=== PATIENT | male | born 1955 | race Caucasian/White ===

== ENCOUNTER 2023-10-10 10:44 | Outpatient (AMB) | payer MEDICARE, SELFPAY ==
--- NOTE | 2023-10-10 10:59 | HO.NEPHOV ---
HPI HPI Comments History of Present Illness Details I had the privilege of seeing Tee in follow-up of his CKD, proteinuria and hypertension. He has had renal cell cancer and underwent partial left nephrectomy. His blood sugar is reasonably controlled. His hypoglycemic medicatiobs have been adjusted by his media promoter. He is on Jardiance. He denies any orthostatic symptoms, nausea, vomiting, diarrhea, chest pain, shortness of breath or pedal edema. He has history of basal cell cancer on the skin and had it removed. All the systems were reviewed and were negative. [facility] Medical History (Updated 10/10/23 @ 13:53 by Hector Perdue MD) Proteinuria Renal cell cancer Hypertension Type 2 diabetes mellitus with diabetic nephropathy Surgical History (Updated 10/10/23 @ 09:45 by Tali Coburn MA) History of nephrectomy, left Family History (Updated 10/10/23 @ 11:10 by Tali Coburn MA) Father Stroke Mother Heart disease Social History (Updated 10/10/23 @ 11:11 by Tali Coburn MA) Alcohol intake: current Comment: On Occasion Patient Tobacco Use Status: Never used Tobacco Vital Signs 10/10/23 11:02 Height 5 ft 6 in Weight 187 lb 4 oz BMI 30.2 BP 144/94 H Blood Pressure Location Lt brachial Position Sitting Pulse 101 H Pulse Source Pulse Oximeter Pulse Oximetry (%) 95 Oxygen Delivery Method Room Air Physical Exam Vital Signs: Last Vital Signs Pulse 101 H 10/10/23 11:02 BP 144/94 H 10/10/23 11:02 Pulse Ox 95 10/10/23 11:02 Oxygen Delivery Method Room Air 10/10/23 11:02 BMI result Body Mass Index 30.2 Const General: comfortable and no acute distress Orientation/consciousness: patient oriented x3 HEENT Head: Yes normocephalic Mouth: Normal oral and palatal mucosa present Eyes EOM: EOMs intact bilaterally Neck Neck: Yes supple Resp Auscultation: clear to auscultation bilaterally Cardio Jugular venous distension: no JVD Rate: regular rate GI Palpation (GI): Soft to palpation Auscultation: normal bowel sounds General: Yes no CVA tenderness Back/Spine/Pelvis Back: no CVA tenderness Skin General skin exam: no rashes or lesions noted Neuro General: patient oriented x3 and moves all extremities Extrem General: Yes no pedal edema Assessment & Plan Assessment & Plan (1) Diabetic nephropathy: Code(s): E11.21 - Type 2 diabetes mellitus with diabetic nephropathy Qualifiers: Diabetes mellitus type: type 2 Qualified Code(s): E11.21 - Type 2 diabetes mellitus with diabetic nephropathy (2) Hypertension: Code(s): I10 - Essential (primary) hypertension Qualifiers: Hypertension type: primary hypertension Qualified Code(s): I10 - Essential (primary) hypertension (3) Type 2 diabetes mellitus with diabetic nephropathy: Code(s): E11.21 - Type 2 diabetes mellitus with diabetic nephropathy Qualifiers: Diabetes mellitus halfway insulin use: with halfway use Qualified Code(s): E11.21 - Type 2 diabetes mellitus with diabetic nephropathy; Z79.4 - terminal carman (current) use of insulin Plan 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 His blood pressure is not at goal. I increased his lisinopril to 40 mg once daily. He is on Jardiance. He avoids nonsteroidal anti-inflammatory medications and maintain good hydration. His blood sugar needs to be better control. He should be on a low-sodium diet. He has history of partial nephrectomy for left renal cell cancer. He needs to follow-up with his urologist. He may benefit from a sleep study. I did not make any other medication changes today. No other prescription refills requested. Follow-up blood work ordered. Follow-up appointment given. All questions answered. Orders: Orders Electrolytes Today E11.21 - Type 2 diabetes mellitus with diabetic nephropathy, I10 - Essential (primary) hypertension Creatinine Today E11.21 - Type 2 diabetes mellitus with diabetic nephropathy, I10 - Essential (primary) hypertension Protein Creatinine Ratio, Ur Today E11.21 - Type 2 diabetes mellitus with diabetic nephropathy, I10 - Essential (primary) hypertension Blood Urea Nitrogen Today E11.21 - Type 2 diabetes mellitus with diabetic nephropathy, I10 - Essential (primary) hypertension Medications: Changed From lisinopril 30 mg PO DAILY 30 tabs 2RF To lisinopril 40 mg PO DAILY 90 tabs 2RF 90 days Coding Level of Care Code Est Pt Level 4 (81160) Diagnoses Diabetic nephropathy associated with type 2 diabetes mellitus E11.21 Diabetes mellitus type: type 2 Primary hypertension I10 Hypertension type: primary hypertension Type 2 diabetes mellitus with diabetic nephropathy, with long-term current use of insulin E11.21; Z79.4 Diabetes mellitus joint terminal attack controller insulin use: with joint terminal attack controller use Results Reviewed Nephrology Results: No Data to Display
[2023-10-10 11:02] VITALS: BP 144/94; PULSE 101; O2SAT 95; BMI 30.2
== END 2023-10-10 11:42 | disposition home or self-care (01) ==
PROVIDERS: Visit Provider Internal Medicine Nephrology
DX: E11.21 Type 2 diabetes mellitus with diabetic nephropathy (principal); I10 Essential (primary) hypertension; Z79.4 Long term (current) use of insulin
CPT/HCPCS: 99214

== ENCOUNTER → 2023-10-10 10:44 | Outpatient (BNVA) | payer MEDICARE, SELFPAY | PROVIDERS: Visit Provider Internal Medicine Nephrology | DX: I12.9 Hypertensive chronic kidney disease with stage 1 through stage 4 chronic kidney disease, or unspecified chronic kidney disease (principal); E11.21 Type 2 diabetes mellitus with diabetic nephropathy; N18.9 Chronic kidney disease, unspecified; Z79.4 Long term (current) use of insulin | CPT/HCPCS: 99212 ==

== ENCOUNTER 2024-01-23 15:47 | Outpatient (AMB) | payer MEDICARE, SELFPAY ==
--- NOTE | 2024-01-23 16:16 | HO.NEPHOV ---
Vital Signs 01/23/24 16:17 Height 5 ft 6 in Weight 179 lb 8 oz BMI 29.0 BP 130/80 Blood Pressure Location Lt brachial Position Sitting Pulse 102 H Pulse Source Pulse Oximeter Pulse Oximetry (%) 98 Oxygen Delivery Method Room Air Intake Visit Reasons: R/S 01/09/2024/ M Compounding Assistant Required: No Accompanied by: Self / Same As Patient Allergies Penicillins Allergy (Verified 01/23/24 16:19) Unknown HPI Comments Details: I had the privilege of seeing Tee in follow-up of his CKD, proteinuria and hypertension. He has had renal cell cancer and underwent partial left nephrectomy. His blood sugar is reasonably controlled. He is on Jardiance. He denies any orthostatic symptoms, nausea, vomiting, diarrhea, chest pain, shortness of breath or pedal edema. He has history of basal cell cancer on the skin and had it removed. All the systems were reviewed and were negative. [facility] Medical History (Updated 10/10/23 @ 13:53 by Hector Perdue MD) Proteinuria Renal cell cancer Hypertension Type 2 diabetes mellitus with diabetic nephropathy Surgical History History of nephrectomy, left Family History Father Stroke Mother Heart disease Social History Alcohol intake: current Comment: On Occasion Patient Tobacco Use Status: Never used Tobacco Physical Exam Vital Signs: Last Vital Signs Pulse 102 H 01/23/24 16:17 BP 130/90 H 01/23/24 16:17 Pulse Ox 98 01/23/24 16:17 Oxygen Delivery Method Room Air 01/23/24 16:17 BMI result Body Mass Index 29.0 Const General: comfortable and no acute distress Orientation/consciousness: patient oriented x3 HEENT Head: Yes normocephalic Mouth: Normal oral and palatal mucosa present Eyes EOM: EOMs intact bilaterally Neck Neck: Yes supple Resp Auscultation: clear to auscultation bilaterally Cardio Jugular venous distension: no JVD Rate: regular rate GI Palpation (GI): Soft to palpation Auscultation: normal bowel sounds General: Yes no CVA tenderness Back/Spine/Pelvis Back: no CVA tenderness Skin General skin exam: no rashes or lesions noted Neuro General: patient oriented x3 and moves all extremities Extrem General: Yes no pedal edema Results Reviewed Nephrology Results: No Data to Display Assessment & Plan Assessment & Plan (1) Type 2 diabetes mellitus with diabetic nephropathy: Code(s): E11.21 - Type 2 diabetes mellitus with diabetic nephropathy Category: Medical Qualifiers: Diabetes mellitus long term care social worker insulin use: with long term care social worker use Qualified Code(s): E11.21 - Type 2 diabetes mellitus with diabetic nephropathy; Z79.4 - computer terminal operator (current) use of insulin (2) Hypertension: Code(s): I10 - Essential (primary) hypertension Category: Medical Qualifiers: Hypertension type: primary hypertension Qualified Code(s): I10 - Essential (primary) hypertension (3) Diabetic nephropathy: Code(s): E11.21 - Type 2 diabetes mellitus with diabetic nephropathy Category: Medical Qualifiers: Diabetes mellitus type: type 2 Qualified Code(s): E11.21 - Type 2 diabetes mellitus with diabetic nephropathy Plan 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 His blood pressure is at goal. He is on lisinopril 40 mg once daily. He is on Jardiance. He avoids nonsteroidal anti-inflammatory medications and maintain good hydration. His blood sugar needs to be better control. He should be on a low-sodium diet. He has history of partial nephrectomy for left renal cell cancer. He needs to follow-up with his urologist. He may benefit from a sleep study. I did not make any other medication changes today but plan to switch his Amlodipine to Diltiazem at next visit for lowering BP as well as anti proteinuric effects. No other prescription refills requested. Follow-up blood work ordered. Follow-up appointment given. All questions answered Orders: Orders Electrolytes Today E11.21 - Type 2 diabetes mellitus with diabetic nephropathy, I10 - Essential (primary) hypertension, Z79.4 - computer terminal operator (current) use of insulin Protein Creatinine Ratio, Ur Today E11.21 - Type 2 diabetes mellitus with diabetic nephropathy, I10 - Essential (primary) hypertension, Z79.4 - computer terminal operator (current) use of insulin Blood Urea Nitrogen Today E11.21 - Type 2 diabetes mellitus with diabetic nephropathy, I10 - Essential (primary) hypertension, Z79.4 - correction (current) use of insulin Creatinine Today E11.21 - Type 2 diabetes mellitus with diabetic nephropathy, I10 - Essential (primary) hypertension, Z79.4 - computer terminal operator (current) use of insulin Coding Level of Care Code Est Pt Level 4 (25592) Diagnoses Type 2 diabetes mellitus with diabetic nephropathy, with long-term current use of insulin E11.21; Z79.4 Diabetes mellitus long term care social worker insulin use: with long term care social worker use Primary hypertension I10 Hypertension type: primary hypertension Diabetic nephropathy associated with type 2 diabetes mellitus E11.21 Diabetes mellitus type: type 2
[2024-01-23 16:17] VITALS: BP 130/80; PULSE 102; O2SAT 98; BMI 29.0
== END 2024-01-23 16:49 | disposition home or self-care (01) ==
PROVIDERS: PCP Internal Medicine; Visit Provider Internal Medicine Nephrology
DX: E11.21 Type 2 diabetes mellitus with diabetic nephropathy (principal); Z79.4 Long term (current) use of insulin; I10 Essential (primary) hypertension
CPT/HCPCS: 99214

== ENCOUNTER → 2024-01-23 15:47 | Outpatient (BNVA) | payer MEDICARE, SELFPAY | PROVIDERS: PCP Internal Medicine; Visit Provider Internal Medicine Nephrology | DX: E11.21 Type 2 diabetes mellitus with diabetic nephropathy (principal); I10 Essential (primary) hypertension; Z79.4 Long term (current) use of insulin | CPT/HCPCS: 99212 ==

== ENCOUNTER 2024-07-30 11:38 | Outpatient (AMB) | payer MEDICARE, SELFPAY ==
--- NOTE | 2024-07-30 11:44 | HO.NEPHOV ---
Vital Signs 07/30/24 11:46 Height 5 ft 6 in Weight 174 lb 8 oz BMI 28.2 BP 122/82 Blood Pressure Location Lt brachial Position Sitting Pulse 109 H Pulse Source Pulse Oximeter Pulse Oximetry (%) 97 Oxygen Delivery Method Room Air Intake Visit Reasons: 6 mon follow up-Conf Call Centre Supervisor Required: No Accompanied by: Self / Same As Patient Allergies Penicillins Allergy (Verified 07/30/24 11:44) Unknown HPI Comments Details: Tee was seen in follow-up of his CKD, proteinuria and hypertension. He has had renal cell cancer and underwent partial left nephrectomy. His blood sugar is reasonably controlled. He is on Jardiance. He denies any orthostatic symptoms, nausea, vomiting, diarrhea, chest pain, shortness of breath or pedal edema. He has history of basal cell cancer on the skin and had it removed. All the systems were reviewed and were negative. [facility] Medical History (Updated 10/10/23 @ 13:53 by Hector Perdue MD) Proteinuria Renal cell cancer Hypertension Type 2 diabetes mellitus with diabetic nephropathy Surgical History History of nephrectomy, left Family History Father Stroke Mother Heart disease Social History Alcohol intake: current Comment: On Occasion Patient Tobacco Use Status: Never used Tobacco Review of Systems Const All systems reviewed & are unremarkable except as noted in HPI and below Physical Exam Const General: comfortable and no acute distress Orientation/consciousness: patient oriented x3 HEENT Head: Yes normocephalic Mouth: Normal oral and palatal mucosa present Eyes EOM: EOMs intact bilaterally Neck Neck: Yes supple Resp Auscultation: clear to auscultation bilaterally Cardio Jugular venous distension: no JVD Rate: regular rate GI Palpation (GI): Soft to palpation Auscultation: normal bowel sounds General: Yes no CVA tenderness Back/Spine/Pelvis Back: no CVA tenderness Skin General skin exam: no rashes or lesions noted Neuro General: patient oriented x3 and moves all extremities Extrem General: Yes no pedal edema Results Reviewed Nephrology Results: No Data to Display Assessment & Plan Assessment & Plan (1) Type 2 diabetes mellitus with diabetic nephropathy: Code(s): E11.21 - Type 2 diabetes mellitus with diabetic nephropathy Category: Medical Qualifiers: Diabetes mellitus mcfp insulin use: with mcfp use Qualified Code(s): E11.21 - Type 2 diabetes mellitus with diabetic nephropathy; Z79.4 - care home (current) use of insulin (2) Hypertension: Code(s): I10 - Essential (primary) hypertension Category: Medical Qualifiers: Hypertension type: primary hypertension Qualified Code(s): I10 - Essential (primary) hypertension Plan 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 His blood pressure is at goal. He is on lisinopril 40 mg once daily. He is on Jardiance. He avoids nonsteroidal anti-inflammatory medications and maintain good hydration. He should be on a low-sodium diet. He has history of partial nephrectomy for left renal cell cancer. He needs to follow-up with his urologist. I did not make any other medication changes today but plan to switch his Amlodipine to Diltiazem in the future for lowering BP as well as anti proteinuric effects. All questions answered Orders: Orders Creatinine 6 Months E11.21 - Type 2 diabetes mellitus with diabetic nephropathy, I10 - Essential (primary) hypertension, Z79.4 - predatory animal exterminator (current) use of insulin Protein Creatinine Ratio, Ur 6 Months E11.21 - Type 2 diabetes mellitus with diabetic nephropathy, I10 - Essential (primary) hypertension, Z79.4 - predatory animal exterminator (current) use of insulin Blood Urea Nitrogen 6 Months E11.21 - Type 2 diabetes mellitus with diabetic nephropathy, I10 - Essential (primary) hypertension, Z79.4 - care home (current) use of insulin Electrolytes 6 Months E11.21 - Type 2 diabetes mellitus with diabetic nephropathy, I10 - Essential (primary) hypertension, Z79.4 - predatory animal exterminator (current) use of insulin Coding Level of Care Code Est Pt Level 4 (39195) Diagnoses Type 2 diabetes mellitus with diabetic nephropathy, with long-term current use of insulin E11.21; Z79.4 Diabetes mellitus mcfp insulin use: with mcfp use Primary hypertension I10 Hypertension type: primary hypertension
[2024-07-30 11:46] VITALS: BP 122/82; PULSE 109; O2SAT 97; BMI 28.2
== END 2024-07-30 12:13 | disposition home or self-care (01) ==
LOC: HO.HKAS 11:38
PROVIDERS: PCP Internal Medicine; Visit Provider Internal Medicine Nephrology
DX: E11.21 Type 2 diabetes mellitus with diabetic nephropathy (principal); Z79.4 Long term (current) use of insulin; I10 Essential (primary) hypertension
CPT/HCPCS: 99214

== ENCOUNTER → 2024-07-30 11:38 | Outpatient (BNVA) | payer MEDICARE, SELFPAY | PROVIDERS: PCP Internal Medicine; Visit Provider Internal Medicine Nephrology | DX: E11.22 Type 2 diabetes mellitus with diabetic chronic kidney disease (principal); E11.21 Type 2 diabetes mellitus with diabetic nephropathy; I12.9 Hypertensive chronic kidney disease with stage 1 through stage 4 chronic kidney disease, or unspecified chronic kidney disease; Z79.4 Long term (current) use of insulin; N18.9 Chronic kidney disease, unspecified | CPT/HCPCS: 99212 ==

== ENCOUNTER 2025-01-16 14:14 | Outpatient (REF) | payer MEDICARE, SELFPAY ==
--- OUTSIDE RECORDS SUMMARY | 2025-01-16 16:46 | XMS_ITS | Clinical Summary ---
Author Organization [facility] Address [address] [place] [address] Care Team Providers Care Early Morning Name Role Phone Unavailable Primary Care Provider Unavailabl e Allergies Active Allergy Reactions Criticality Noted Date Comments Penicillins Urticarial Rash Medium 01/21/2015 Medications * This document contains information received from the source organization and may not represent a complete record from that organization. No known medications Social History Tobacco Use Types Packs/Day Years Used Date Smoking Tobacco: Every Day Cigarettes Smokeless Tobacco: Never Alcohol Use Standard Drinks/Week Comments Not Asked 0 (1 standard drink = 0.6 oz pur e alcohol) Sex and Gender Information Value Date Recorded Sex Assigned at Not on file Legal Sex Male 10:41 PM EDT Gender Identity Not on file Sexual Orientation Not on file Last Filed Vital Signs Vital Sign Reading Time Taken Comments Blood Pressure 116/80 01/07/2016 9:05 AM EDT Pulse 96 01/07/2016 9:05 AM EDT Temperature - - Respiratory Rate - - Oxygen Saturation - - Inhaled Oxygen Concentration - - Weight 82.6 kg (182 lb) 01/21/2015 8:15 AM EDT Height 166.4 cm (5' 5.5 ) 01/21/2015 8:15 AM EDT Body Mass Index 29.83 01/21/2015 8:15 AM EDT Plan of Treatment Health Maintenance Due Date Last Done Comments Hepatitis C Screening 1955 DTaP/Tdap/Td (1 - Tdap) 1973 Pneumococcal 50+ years (1 of 1 - PCV) 2005 Zoster (Shingrix) (1 of 2) 2005 Abdominal Aorta Imaging 2020 COVID-19 Vaccine ( - 2023-2 5 season) 2024 Influenza (#1) 2024 RSV (1 - 1-dose 75+ series) 2030 HPV Vaccine Aged Out No longer eligi ble based on patient's age to complete this topic Hep A Aged Out No longer eligi ble based on patient's age to complete this topic Hep B Aged Out No longer eligi ble based on patient's age to complete this topic Hib Aged Out No longer eligi ble based on patient's age to complete this topic Meningococcal ACWY Aged Out No longer eligible based on patient's age to complete this topic Zoster (Zostavax) Discontinued
--- OUTSIDE RECORDS SUMMARY | 2025-01-16 16:46 | XMS_ITS | Clinical Summary ---
Author Organization [employer] [facility] [employer] Address [address] [facility] [place] [address] Care Team Providers Care Executive Account Manager Name Role Phone Pcp, No Primary Care Provider [phone] Allergies No known active allergies Medications atorvastatin (LIPITOR) 40 MG tablet 10/10/2019 Active ACCU-CHEK YOLANDA PLUS TEST STRP strp USE TO CHECK BLOOD GLUCOSE 4 TIMES DAILY 11 07/23/2019 Active TRULICITY 1.5 mg/0.5 mL pnij 08/04/2019 Acti ve JARDIANCE 25 mg tab 10/02/2019 Active BASAGLAR KWIKPEN U-100 INSULIN 100 unit/mL (3 mL) inpn 08/13/2019 Active lisinopril (PRINIVIL,ZESTR IL) 20 MG tablet 07/26/2019 Active metFORMIN (GLUCOPHAGE) 1000 MG tablet 10/10/2019 Acti ve metroNIDAZOLE (METROCREAM) 0.75 % cream 10/24/2019 Active mupirocin (BACTROBAN) 2 % ointment 09/26/2019 Active omeprazole (PriLOSEC) 20 MG capsule 10/21/2019 Active BD ULTRA-FINE SHORT PEN NEEDLE 31 gauge x 5/16 ndle INJECT INSULIN AT BEDTIME 5 07/24/2019 Active Immunizations Name Administration Dates Next Due Flublok Trivalent Prefilled Syringe (18+ years) 08/01/2019 Flucelvax Trivalent PFS IM; Without Preservative (18+ mos) 07/20/2018 Shingrix Recombinant Dose 10/24/2019,08/01/2019 Social History Tobacco Use Types Packs/Day Years Used Date Smoking Tobacco: Never Assessed Sex and Gender Information Value Date Recorded Sex Assigned at Not on file Legal Sex Male 1:59 PM EDT Gender Identity Not on file Sexual Orientation Not on file Plan of Treatment Health Maintenance Due Date Last Done Comments Colorectal Cancer: COLONOSCO PY Screening every 10 yrs (or Modifier) 1955 Depression: Screening Annual ly using PHQ-2/9 in Adults 18 yrs or above (or HM Modifier)([facility]) 1955 Hepatitis C Virus Infection in Adolescents and Adults: Screening (or Modifier) ([facility]) 1973 SDOH Screening Reminder: Lisy ha for all adults ([facility]) 1973 Tobacco Smoking Cessation: i n Adults excluding Women: Behavioral and Pharmacotherapy Interventions ([facility]) 1973 DTaP/Tdap/Td Vaccines ([facility]) (1 - Tdap) 1974 Lipid Screening: Every 5 yrs for Men aged 35+ (or HM Modifier) ([facility]) 1991 Colorectal Cancer Screening 45 -75 Yrs (or HM Modifier) 2000 Colorectal Cancer: FLEXIBLE SIGMOIDOSCOPY Screening every 5 yrs 2000 Colorectal Cancer: Fecal Imm unochemical Test (FIT) Annually [facility] 2000 Colorectal Cancer: High-sens itivity gFOBT Screening Annually [facility] 2000 Colorectal Cancer: Stool Col oguard Screening every 3 yrs 2000 Colorectal Cancer:CT Colonog ric Screening every 5 yrs 2000 Pneumococcal Vaccination Scr eening: Patients 50+ yrs of age ([facility]) (1 of 1 - PCV) 2005 COVID-19 Vaccine Screening: Initial Series and Booster Status ([facility]) ( - 2023- season) 2024 Flu Vaccination: Ages 65+: Y early High Dose Recommended (or Modifier)([facility]) 04/25/2025 08/01/2019, 8 RSV Vaccines (1 - 1-dose 75+ series) 2030 Zoster/Shingles Vaccine Seri es Screening: Adults aged 18+ yrs (or HM Modifiers)([facility]) Completed 10/24/2019, 08/01/2019 Medical Devices Not on file Insurance [facility] Care Teams Executive Account Manager Relationship Specialty Start Date End Date Pcp, No PCP - General Family Medicine 08/22/21
[2025-01-16 18:07] LABS: Anion Gap 13 (12-20); Blood Urea Nitrogen 15 mg/dL (9-16); Carbon Dioxide 23 mmol/L (22-29); Chloride 107 mmol/L (96-108); Estimated Glomerular Filt Rate > 60; Potassium 4.6 mmol/L (3.3-5.1); Sodium 138 mmol/L (135-145)
[2025-01-16 18:58] LABS: Creatinine Urine 33.96 mg/dL; Protein/Creatinine Ratio, Ur 1.83 (<0.2); Total Protein Urine Random 62 mg/dL (<12)
== END 2025-01-16 14:15 | disposition home or self-care (01) ==
LOC: HO.HKASLDS 14:14
PROVIDERS: Visit Provider Internal Medicine Nephrology
DX: E11.21 Type 2 diabetes mellitus with diabetic nephropathy (principal); Z79.4 Long term (current) use of insulin; I10 Essential (primary) hypertension
CPT/HCPCS: 36415; 80051; 82565; 82570; 84156; 84520

== ENCOUNTER 2025-01-21 09:35 | Outpatient (AMB) | payer MEDICARE, SELFPAY ==
--- NOTE | 2025-01-21 10:00 | HO.NEPHOV ---
Vital Signs 01/21/25 10:02 Height 5 ft 6 in Weight 177 lb 4 oz BMI 28.6 BP 110/84 Blood Pressure Location Lt brachial Position Sitting Pulse 108 H Pulse Source Pulse Oximeter Pulse Oximetry (%) 97 Oxygen Delivery Method Room Air Intake Visit Reasons: 6mon follow up Air Hole Driller Required: No Accompanied by: Self / Same As Patient Allergies Penicillins Allergy (Verified 01/21/25 10:02) Unknown HPI Comments Details: Tee was seen in follow-up of his CKD, proteinuria and hypertension. He has had renal cell cancer and underwent partial left nephrectomy. His blood sugar is reasonably controlled. He is on Jardiance. He denies any orthostatic symptoms, nausea, vomiting, diarrhea, chest pain, shortness of breath or pedal edema. All the systems were reviewed and were negative. [facility] Medical History (Updated 10/10/23 @ 13:53 by Hector Perdue MD) Proteinuria Renal cell cancer Hypertension Type 2 diabetes mellitus with diabetic nephropathy Surgical History History of nephrectomy, left Family History Father Stroke Mother Heart disease Social History Alcohol intake: current Comment: On Occasion Patient Tobacco Use Status: Never used Tobacco Review of Systems Const All systems reviewed & are unremarkable except as noted in HPI and below Physical Exam Vital Signs: Last Vital Signs Pulse 108 H 01/21/25 10:02 BP 110/84 01/21/25 10:02 Pulse Ox 97 01/21/25 10:02 Oxygen Delivery Method Room Air 01/21/25 10:02 BMI result Body Mass Index 28.6 Const General: comfortable and no acute distress Orientation/consciousness: patient oriented x3 HEENT Head: Yes normocephalic Mouth: Normal oral and palatal mucosa present Eyes EOM: EOMs intact bilaterally Neck Neck: Yes supple Resp Auscultation: clear to auscultation bilaterally Cardio Jugular venous distension: no JVD Rate: regular rate GI Palpation (GI): Soft to palpation Auscultation: normal bowel sounds General: Yes no CVA tenderness Back/Spine/Pelvis Back: no CVA tenderness Skin General skin exam: no rashes or lesions noted Neuro General: patient oriented x3 and moves all extremities Extrem General: Yes no pedal edema Results Reviewed Nephrology Results: Sodium 138 mmol/L (135-145) 01/16/25 Potassium 4.6 mmol/L (3.3-5.1) 01/16/25 Chloride 107 mmol/L (96-108) 01/16/25 Carbon Dioxide 23 mmol/L (22-29) 01/16/25 BUN 15 mg/dL (9-16) 01/16/25 Creatinine 0.96 mg/dL (0.5-1.4) 01/16/25 Urine Creatinine 33.96 mg/dL 01/16/25 Protein/Creatinin Ratio 1.83 (<0.2) H 01/16/25 Assessment & Plan Assessment & Plan (1) Diabetic nephropathy: Code(s): E11.21 - Type 2 diabetes mellitus with diabetic nephropathy Category: Medical Qualifiers: Diabetes mellitus type: type 2 Qualified Code(s): E11.21 - Type 2 diabetes mellitus with diabetic nephropathy (2) Hypertension: Code(s): I10 - Essential (primary) hypertension Category: Medical Qualifiers: Hypertension type: primary hypertension Qualified Code(s): I10 - Essential (primary) hypertension (3) Type 2 diabetes mellitus with diabetic nephropathy: Code(s): E11.21 - Type 2 diabetes mellitus with diabetic nephropathy Category: Medical Qualifiers: Diabetes mellitus [facility] insulin use: with ferry terminal supervisor use Qualified Code(s): E11.21 - Type 2 diabetes mellitus with diabetic nephropathy; Z79.4 - prison (current) use of insulin Plan 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 His blood pressure is at goal. He is on lisinopril 40 mg once daily. He is on Jardiance. He avoids nonsteroidal anti-inflammatory medications and maintain good hydration. He should be on a low-sodium diet. He has history of partial nephrectomy for left renal cell cancer. He needs to follow-up with his urologist. I did not make any other medication changes today but may switch his Amlodipine to Diltiazem in the future for lowering BP as well as anti proteinuric effects. All questions answered Orders: Orders Protein Creatinine Ratio, Ur 6 Months E11.21 - Type 2 diabetes mellitus with diabetic nephropathy, I10 - Essential (primary) hypertension, Z79.4 - prison (current) use of insulin Creatinine 6 Months E11.21 - Type 2 diabetes mellitus with diabetic nephropathy, I10 - Essential (primary) hypertension, Z79.4 - prison (current) use of insulin Electrolytes 6 Months E11. - Type 2 diabetes mellitus with diabetic nephropathy, I10 - Essential (primary) hypertension, Z79.4 - terminal clerk (current) use of insulin Blood Urea Nitrogen 6 Months . - Type 2 diabetes mellitus with diabetic nephropathy, I10 - Essential (primary) hypertension, Z79.4 - prison (current) use of insulin Coding Level of Care Code Est Pt Level 4 (14460) Diagnoses Diabetic nephropathy associated with type 2 diabetes mellitus Diabetes mellitus type: type 2 Primary hypertension I10 Hypertension type: primary hypertension Type 2 diabetes mellitus with diabetic nephropathy, with long-term current use of insulin ; Z79.4 Diabetes mellitus ferry terminal supervisor insulin use: with [facility] use
[2025-01-21 10:02] VITALS: BP 110/84; PULSE 108; O2SAT 97; BMI 28.6
--- OUTSIDE RECORDS SUMMARY | 2025-01-21 10:36 | XMS_ITS | Encounter Summary ---
Author Organization [facility] Address [address] [place] [address] Phone Care Team Providers Care Burial Needs Salesperson Name Role Phone Dory Ku MD Primary Care Provider [phone] Reason for Visit * Reason Comments Med Refill Encounter Details Date Type Department Care Team (Late st Contact Info) Description 02/23/2022 Refill [facility] [address] [place] [phone] Hector Perdue MD Social History Tobacco Use Types Packs/Day Years Used Date Smoking Tobacco: Former Smokeless Tobacco: Former Alcohol Use Standard Drinks/Week Comments No 0 (1 standard drink = 0.6 oz pur e alcohol) Sex and Gender Information Value Date Recorded Sex Assigned at Not on file Legal Sex Male 5:18 PM EST Gender Identity Not on file Sexual Orientation Not on file documented as of this encounter Plan of Treatment Not on file documented as of this encounter Visit Diagnoses Not on filedocumented in this encounter Care Teams Burial Needs Salesperson Relationship Specialty Start Date End Date Dory uK MD [address] [address] PCP - General 10/05/20 documented as of this encounter
--- OUTSIDE RECORDS SUMMARY | 2025-01-21 10:36 | XMS_ITS | Clinical Summary ---
Author Organization [employer] [facility] Address [address] [facility] [place] [address] Care Team Providers Care Occupational Health Technician Name Role Phone Pcp, No Primary Care Provider [phone] Allergies No known active allergies Medications atorvastatin [...] Adults 18 yrs or above (or HM Modifier)([facility]) 1955 Hepatitis C Virus Infection in Adolescents and Adults: Screening (or Modifier) ([facility]) 1973 SDOH Screening Reminder: Lisy ha for all adults ([facility]) 1973 Tobacco Smoking Cessation: i n Adults excluding Women: Behavioral and Pharmacotherapy Interventions ([facility]) 1973 DTaP/Tdap/Td Vaccines ([facility]) (1 - Tdap) 1974 Lipid Screening: Every 5 yrs for Men aged 35+ (or HM Modifier) ([facility]) 1991 Colorectal Cancer Screening 45 -75 Yrs (or HM Modifier) 2000 Colorectal Cancer: FLEXIBLE SIGMOIDOSCOPY Screening every 5 yrs 2000 Colorectal Cancer: Fecal Imm unochemical Test (FIT) Annually [facility] 2000 Colorectal Cancer: High-sens itivity gFOBT Screening Annually [facility] 2000 Colorectal Cancer: Stool Col oguard Screening every 3 yrs 2000 Colorectal Cancer:CT Colonog ric Screening every 5 yrs 2000 Pneumococcal Vaccination Scr eening: Patients 50+ yrs of age ([facility]) (1 of 1 - PCV) 2005 COVID-19 Vaccine Screening: Initial Series and Booster Status ([facility]) ( - 2023- season) 2024 Flu Vaccination: Ages 65+: Y early High Dose Recommended (or Modifier)([facility]) 04/25/2025 08/01/2019, 8 RSV Vaccines (1 - 1-dose 75+ series) 2030 Zoster/Shingles Vaccine Seri es Screening: Adults aged 18+ yrs (or HM Modifiers)([facility]) Completed 10/24/2019, 08/01/2019 Medical Devices Not on file Insurance [facility] Care Teams Occupational Health Technician Relationship Specialty Start Date End Date Pcp, No PCP - General Family Medicine 08/22/21
--- OUTSIDE RECORDS SUMMARY | 2025-01-21 10:36 | XMS_ITS | Clinical Summary ---
Author Organization [facility] Address [address] [place] [address] Care Team Providers Care Home Coordinator Name Role Phone Unavailable Primary Care Provider [...]
--- OUTSIDE RECORDS SUMMARY | 2025-01-21 10:36 | XMS_ITS | Clinical Summary ---
Author Organization [facility] Address [address] [facility] [address] [place] [address] Phone Care Team Providers Care [employer] Name Role Phone Dory Ku MD Primary Care Provider [phone] Allergies Active Allergy Reactions Criticality Noted Date Comments Penicillin G Rash Low 03/20/2023 Penicillins 02/08/2021 Medications aspirin (ST ROSALIND) 81 MG EC tablet Take 1 tablet by mouth 1 (one) time each day Active Multiple Vitamin (MULTIVITAMIN ADULT PO) Take 1 tablet by mouth 1 (one) time each day Active omega-3 (FISH OIL) 1000 MG capsule Take 1 capsule by mouth 1 (one) time each day Active atorvastatin (LIPITOR) 40 MG tablet TAKE 1 TABLET BY MOUTH EVERY DAY 30 tablet 5 1 Active metFORMIN (GLUCOPHAGE) 1000 MG tablet Take 1 tablet by mouth twice a day 1 Active glipiZIDE (GLUCOTROL) 5 MG tablet Take 1 tablet by mouth 1 (one) time each day 1 Active Basaglar KwikPen 100 UNIT/ML injection 1 Active omeprazole (PriLOSEC) [address] capsule TAKE 1 CAPSULE BY MOUTH ONCE DAILY 90 capsule 3 2 Active Trulicity 4.5 MG/0.5ML solution pen-injector INJECT THE CONTENTS OF 1 PEN SUBCUTANEOUSLY EVERY WEEK 3 Active rosuvastatin (CRESTOR) 10 MG tablet Take 10 mg by mouth 1 (one) time each day 3 Active Jardiance 25 MG tablet 3 Active lisinopril (PRINIVIL,ZEST RIL) 30 MG tablet Take 1 tablet (30 mg total) by mouth 1 (one) time each day 30 tablet 3 3 Active Active Problems Problem Noted Date Diagnosed Date Acquired trigger finger 03/20/2023 Family history of diabetes mellitus 03/20/2023 Overview (03/20/2023): Dad History of nephrectomy 03/20/2023 Lung mass 03/20/2023 Overview (03/20/2023): Solitary 3mm. followed through lung cancer screening program Obesity 03/20/2023 Polyp of colon 03/20/2023 Overview (03/20/2023): Adenoma Uncontrolled type 2 diabetes mellitus 03/20/2023 Overview (06/25/2024): Replacing diagnoses that were inactivated after the 06/25/24 Regulatory Import Renal disorder due to type 2 diabetes mellitus <Diabetic nephropathy> 08/10/2021 Non-alcoholic fatty liver 04/13/2021 Overview (03/20/2023): Seen in lung screening cancer ct Hypertension 02/09/2021 Hypertensive heart and renal disease with (congestive) heart failure 02/08/2021 Renal disorder due to type 2 diabetes mellitus 0 02/08/2021 Microscopic hematuria 06/10/2014 Proteinuria 06/10/2014 Hyperlipidemia 09/21/2010 Overview (03/20/2023): ldl 22 on Rouvastatin 10mgLDL goal <70. Rouvastatin 20mg too strong. Brought LDL to 2 and HDL was still 30 with Trglycerides 258. went back to 10mgLDL goal <100 Immunizations Immunization Administration Dates Next Due Influenza Whole 06/27/2012 Influenza, MDCK, PF, Quadrivalent 07/20/2018 Influenza, Recombinant, Quad rivalent, Pf 08/01/2019 Influenza, Unspecified 07/06/2022,2020,11/02/2020,08/01,08/01/2019,08/25/2018,07/20/2018 ,07/20/2018,06/21/2017,09/14/2016,06/26,07/08/2014,06/06/2013 Pfizer SARS-COV-2 01/08/2021,12/15/2020 Pneumococcal Conjugate 13-Valent 02/08/2021 Pneumococcal Polysaccharide 04/12/2007 Shingrix 10/25/2019,10/24/2019,08/01/2019 Td, Unspecified 12/15/2005 Tdap 01/04/2023,06/18/2013 Family History Medical History Relation Comments Diabetes Father Hypertension Mother Relation Status Comments Father Alive Mother Alive Social History Tobacco Use Types Packs/Day Years Used Date Smoking Tobacco: Former Smokeless Tobacco: Former Tobacco Cessation:Counseling Given: Not Answered Alcohol Use Standard Drinks/Week Comments No 0 (1 standard drink = 0.6 oz pur e alcohol) Sex and Gender Information Value Date Recorded Sex Assigned at Not on file Legal Sex Male 5:18 PM EST Gender Identity Not on file Sexual Orientation Not on file Last Filed Vital Signs Vital Sign Reading Time Taken Comments Blood Pressure 132/88 06/12/2023 4:23 PM EDT Pulse 99 06/12/2023 4:23 PM EDT Temperature - - Respiratory Rate - - Oxygen Saturation 98% 08/10/2021 1:45 PM EST Inhaled Oxygen Concentration - - Weight 87.2 kg (192 lb 3.2 oz) 06/12/2023 4:23 P M EDT Height 167.6 cm (5' 6 ) 07/07/2020 12:01 PM EDT Body Mass Index 31.02 07/07/2020 12:01 PM EDT Plan of Treatment Health Maintenance Due Date Last Done Comments Colorectal Cancer Screening: Annual FOBT 2004 Colorectal Cancer Screening: Colonoscopy 2004 Colorectal Cancer Screening: Sigmoidoscopy 2004 Diabetes: Hemoglobin A1C 10/25/2020 Diabetes: Ophthalmology Exam 10/25/2020 Diabetes: Pedal Pulse Checked 10/25/2020 Diabetes: Sensory Foot Exam 10/25/2020 Diabetes: Visual Foot Exam 10/25/2020 Pneumococcal Vaccine: 50+ Years (3 of 3 - PPSV23, PCV20 or PCV21) 04/05/2021 02/08/2021, 04/12/2007 Influenza Vaccine (Season Ended) 2025 07/06/2022, 06/04/2021, 11/02/2020, Additional history exists Pneumococcal Vaccine: Peds (0 to 5 Years) and At-Risk Patients (6 to 49 Years) Discontinued 02/08/2021, 04/12/2007 Hepatitis B Vaccine Aged Out No longe r eligible based on patient's age to complete this topic Insurance Medicare [facility] Medicare Care Teams [employer] Relationship Specialty Start Date End Date Dory Ku MD [address] [place] [address] PCP - General 10/05/20
== END 2025-01-21 10:24 | disposition home or self-care (01) ==
LOC: HO.HKAS 09:37
PROVIDERS: PCP Internal Medicine; Visit Provider Internal Medicine Nephrology
DX: E11.21 Type 2 diabetes mellitus with diabetic nephropathy (principal); I10 Essential (primary) hypertension; Z79.4 Long term (current) use of insulin
CPT/HCPCS: 99214

== ENCOUNTER → 2025-01-21 09:35 | Outpatient (BNVA) | payer MEDICARE, SELFPAY | PROVIDERS: PCP Internal Medicine; Visit Provider Internal Medicine Nephrology | DX: I12.9 Hypertensive chronic kidney disease with stage 1 through stage 4 chronic kidney disease, or unspecified chronic kidney disease (principal); E11.22 Type 2 diabetes mellitus with diabetic chronic kidney disease; E11.21 Type 2 diabetes mellitus with diabetic nephropathy; N18.9 Chronic kidney disease, unspecified; R80.9 Proteinuria, unspecified; Z79.4 Long term (current) use of insulin; Z85.528 Personal history of other malignant neoplasm of kidney; Z98.890 Other specified postprocedural states | CPT/HCPCS: 99212 ==